=== PATIENT | female | born 1975 | race Caucasian/White ===

== ENCOUNTER 2017-07-13 20:34 | Emergency (ER) | payer MEDICAID ==
[2017-07-14] MEDS: ALBUTEROL 0.083% (NEB) 2.5 MG/3 ML AMP NEB (00:46)
[2017-07-14] MEDS: IPRATROPIUM (NEB) 0.5 MG/2.5 ML AMP NEB (00:46)
[2017-07-14 01:05] LABS: ADD MAN DIFF? NO
[2017-07-14 01:08] LABS: BASOPHIL # 0.1 10^3/ul (0.0-0.1); BASOPHILS % 0.7 % (0.0-2.0); EOSINOPHILS # 1.2 10^3/ul (0.0-0.5); EOSINOPHILS % 11.9 % (0.0-7.0); HEMATOCRIT 36.3 % (37.0-47.0); HEMOGLOBIN 12.3 g/dl (12.0-16.0); LYMPHOCYTES # 3.1 10^3/ul (0.8-2.9); LYMPHOCYTES % 30.6 % (15.0-51.0); MEAN CORPUSCULAR HEMOGLOBIN 30.3 pg (29.0-33.0); MEAN CORPUSCULAR HGB CONC 33.9 g/dl (32.0-37.0); MEAN CORPUSCULAR VOLUME 89.4 fl (82.0-101.0); MEAN PLATELET VOLUME 9.8 fl (7.4-10.4); MONOCYTE # 0.8 10^3/ul (0.3-0.9); MONOCYTES % 7.7 % (0.0-11.0); NEUTROPHIL # 4.9 10^3/ul (1.6-7.5); NEUTROPHILS % 48.9 % (39.0-77.0); PLATELET COUNT 263 10^3/UL (140-415); RED BLOOD COUNT 4.06 10^6/ul (4.20-5.40); RED CELL DISTRIBUTION WIDTH 12.9 % (11.5-14.5)
[2017-07-14 01:27] LABS: ANION GAP 13 (8-16); BLOOD UREA NITROGEN 13 mg/dl (7-20); CALCIUM 9.4 mg/dl (8.4-10.2); CARBON DIOXIDE 26 mmol/L (21-31); CHLORIDE 105 mmol/L (97-110); GLUCOSE 93 mg/dl (70-220); POTASSIUM 3.2 mmol/L (3.5-5.1); SODIUM 141 mmol/L (135-144)
[2017-07-14 01:39] LABS: TROPONIN-I < 0.012 ng/ml (0.00-0.12)
[2017-07-14] MEDS: POTASSIUM CHLORIDE (SR) 20 MEQ TAB PO (04:36)
== END 2017-07-14 04:40 | disposition home or self-care (01) ==
LOC: FTE 20:34
DX: J20.9 Acute bronchitis, unspecified (principal); R07.9 Chest pain, unspecified
CPT/HCPCS: 36415; 71045; 80048; 84484; 85025; 93005; 94664; 99285-25

== ENCOUNTER 2017-07-16 19:59 | Emergency (ER) | payer MEDICAID ==
[2017-07-17] MEDS: METHYLPREDNISOLONE 125 MG INJ IM (00:33)
[2017-07-17] MEDS: IPRATROPIUM (NEB) 0.5 MG/2.5 ML AMP NEB (00:36)
[2017-07-17] MEDS: ALBUTEROL 0.5% (NEB) 2.5 MG/0.5 ML AMP INH (00:37)
== END 2017-07-17 02:05 | disposition home or self-care (01) ==
LOC: FTE 19:59
DX: J20.9 Acute bronchitis, unspecified (principal)
CPT/HCPCS: 94644; 96372; 99284-25

== ENCOUNTER 2018-12-09 02:35 | Emergency (ER) | payer MEDICAID ==
[2018-12-09] MEDS: KETOROLAC 30 MG INJ IM (04:31)
== END 2018-12-09 05:11 | disposition left against medical advice (07) ==
LOC: FTE 02:35
DX: M25.511 Pain in right shoulder (principal)
CPT/HCPCS: 81025; 96372; 99284-25

== ENCOUNTER 2018-12-11 11:32 | Emergency (ER) | payer MEDICAID ==
[2018-12-11] MEDS: HYDROCODONE/APAP (10/325) TAB PO (12:25)
[2018-12-11] MEDS: ONDANSETRON (ODT) 4 MG TAB ODT (12:26)
== END 2018-12-11 17:36 | disposition home or self-care (01) ==
LOC: E/R 11:32
DX: M75.91 Shoulder lesion, unspecified, right shoulder (principal)
CPT/HCPCS: 73030; 73030-RT; 73221; 99284-25